=== PATIENT | female | born 1950 | race Caucasian/White ===

== ENCOUNTER 2024-05-08 12:51 | Emergency (ER) | payer OTHER ==
[~2024-05-08] VITALS: Ht 167.6 cm; Wt 70.3 kg
[2024-05-08 12:59] VITALS: BP_SYST 152; PULSE 73; RESP 16; TEMP 97.5; O2SAT 98
[2024-05-08 13:27] LABS: BASOPHILS # (AUTO) 0.1 K/uL (0.0-0.2); BASOPHILS % (AUTO) 1.4 % (0.0-2.0); EOSINOPHILS # (AUTO) 0.2 K/uL (0.0-0.4); HEMATOCRIT 44.2 % (36-48); HEMOGLOBIN 14.8 g/dL (12.0-16.0); LYMPHOCYTES # (AUTO) 1.8 K/uL (1.0-5.5); LYMPHOCYTES % (AUTO) 23.1 % (20.5-51.5); MEAN CORPUSCULAR HEMOGLOBIN 30 pg (27-31); MEAN CORPUSCULAR HGB CONC 33 % (32-36); MEAN CORPUSCULAR VOLUME 90 fL (79.0-98.0); MONOCYTES # (AUTO) 0.6 K/uL (0.0-1.0); MONOCYTES % (AUTO) 7.4 % (1.7-9.3); NEUTROPHILS # (AUTO) 5.1 K/uL (1.8-7.7); NEUTROPHILS % (AUTO) 65.1 % (40.0-70.0); PLATELET COUNT (AUTO) 331 K/uL (130-430); RED BLOOD CELL COUNT(AUTO) 4.91 MIL/uL (4.2-6.2); RED CELL DISTRIBUTION WIDTH 13.1 % (9.0-15.0); WHITE BLOOD COUNT (AUTO) 7.8 K/uL (4.8-10.8)
[2024-05-08 13:45] LABS: PROTHROMBIN TIME 9.9 SECS (9.5-12.5)
[2024-05-08 13:48] LABS: ANION GAP 10 (5-15); CALCIUM 9.5 mg/dL (8.4-11.0); CARBON DIOXIDE 25 mmol/L (23-29); CHLORIDE 103 mmol/L (98-107); CREATINE KINASE, TOTAL 88 U/L (26-192); CREATININE 0.73 mg/dL (0.55-1.30); GLUCOSE 113 mg/dL (74-106); POTASSIUM 3.9 mmol/L (3.5-5.1); SODIUM SERUM 138 mmol/L (136-145); UREA NITROGEN, BLOOD 14 mg/dL (8-21)
[2024-05-08] MEDS ORDERED: ASPI-1393 PO (15:29)
[2024-05-08 15:50] VITALS: BP_SYST 151; PULSE 68; RESP 16; TEMP 97.5; O2SAT 93
[2024-05-08] MEDS: ASPIRIN 81 MG TABLET(ECOTRIN) PO ONE (16:03)
== END 2024-05-08 15:50 | disposition home or self-care (01) ==
LOC: SED 12:51
DX: I10 Essential (primary) hypertension (principal); R51.9 Headache, unspecified
CPT/HCPCS: 36415; 70450-TC; 71045; 80048; 82550; 83880; 84484; 85025; 85610; 85730; 93005; 99285